=== PATIENT | male | born 1995 | race Asian ===

== ENCOUNTER 2017-08-19 18:33 | Emergency (ER) | payer MEDICAID ==
[~2017-08-19] VITALS: Ht 170.2 cm; Wt 70.0 kg
[2017-08-19 18:42] VITALS: BP 136/79
== END 2017-08-19 20:16 | disposition left against medical advice (07) ==
LOC: EMS 18:36
DX: M54.2 Cervicalgia (principal); Z53.21 Procedure and treatment not carried out due to patient leaving prior to being seen by health care provider

== ENCOUNTER 2017-08-20 14:04 | Emergency (ER) | payer MEDICAID ==
[~2017-08-20] VITALS: Ht 172.7 cm; Wt 77.3 kg
[2017-08-20] MEDS ORDERED: IBUPROFEN 800 MG TABLET PO ONE (15:00)
[2017-08-20 15:37] VITALS: BP 127/69
== END 2017-08-20 15:41 | disposition home or self-care (01) ==
LOC: EMS 14:09
DX: S13.9XXA Sprain of joints and ligaments of unspecified parts of neck, initial encounter (principal); M54.9 Dorsalgia, unspecified; V47.5XXA Car driver injured in collision with fixed or stationary object in traffic accident, initial encounter; Y93.89 Activity, other specified; Y92.488 Other paved roadways as the place of occurrence of the external cause; Y99.8 Other external cause status
CPT/HCPCS: 99282